=== PATIENT | female | born 1945 | race Caucasian/White ===

== ENCOUNTER 2016-11-13 19:47 | Emergency (ER) | payer MEDICARE, MEDICAID ==
[2016-11-13] MEDS ORDERED: Aspirin Low Dose CHEW TAB* 81 MG PO ONE (20:07)
[2016-11-13 20:51] LABS: Hematocrit 33 % (35-47); Mean Corpuscular HGB Conc 34 g/dl (31-36); Mean Corpuscular Hemoglobin 28 pg (27-31); Mean Corpuscular Volume 85 fL (80-97); Mean Platelet Volume 8 um3 (7.4-10.4); Red Blood Count 3.87 10^6/ul (4.0-5.4); Red Cell Distribution Width 14 % (10.5-15); White Blood Count 5.7 10^3/ul (3.5-10.8)
[2016-11-13 21:06] LABS: Albumin 4.1 g/dL (3.2-5.2); BUN/Creatinine Ratio 20.8 (8-20); Calcium 9.3 mg/dL (8.6-10.3); EGFR African American 73.3 (>60); Globulin 2.9 g/dL (2-4); Potassium 3.8 mmol/L (3.5-5.0); Total Bilirubin 0.4 mg/dL (0.2-1.0)
--- NOTE | 2016-11-13 21:08 | RAD ---
Indication: Chest pain. Single frontal view of the chest performed at 2025 hours was reviewed. Comparison is made with previous exam dated January 01, 2016. No mediastinal shift is noted. Heart is of normal size and configuration. Lung cruz appear clear. IMPRESSION: NO ACTIVE CARDIOPULMONARY DISEASE IS NOTED.
--- NOTE | 2016-11-14 01:35 | ED ---
Jensen Li Alok, scribed for Jennifer Rutledge MD on 11/13/16 at 2034 . HPI Chest Pain - HPI Summary HPI Summary: 71F presents to the ED BIBA with left sided chest discomfort accompanied by palpitations at 1800. Pt states her palpitations are still present. Pt took lorazepam prior to arrival. 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 Pt denies chest pressure Pt takes Celexa for depression. Pt is a former smoker 30 years ago. - History of Current Complaint Chief Complaint: EDChestPainROMI Time Seen by Provider: 11/13/16 19:55 Hx Obtained From: Patient Onset/Duration: Started Hours Ago, Atraumatic, Still Present Timing: Constant Initial Severity: Moderate Current Severity: Moderate Chest Pain Location: Left Anterior Character: Fluttering Aggravating Factor(s): Nothing Alleviating Factor(s): Nothing - Allergy/Home Medications Allergies/Adverse Reactions: Allergies Allergy/AdvReac Type Severity Reaction Status Date / Time Penicillins [PCN] Allergy Unknown Verified 12/21/12 12:12 Reaction Details PMH/Surg Hx/FS Hx/Imm Hx Cardiovascular History: Reports: Other Cardiovascular Problems/Disorders - Tachycardia Psychiatric History: Reports: Hx Anxiety, Hx Depression, Hx Panic Disorder, Hx Inpatient Treatment Denies: Hx Attention Deficit Hyperactivity Disorder, Hx Eating Disorder, Hx Community Mental Health Tx, Hx Bipolar Disorder, Hx of Violent Episodes Against Others - Immunization History Date of Tetanus Vaccine: unknown Infectious Disease History: Denies: Traveled Outside the [place] in Last 30 Days - Family History Known Family History: Negative: Cardiac Disease - Social History Lives: Alone Alcohol Use: None Hx Substance Use: No Substance Use Type: Reports: None Hx Tobacco Use: Yes Smoking Status (MU): Former Smoker Review of Systems Negative: Fever Positive: Chest Pain - discomfort, Other - palpitations All Other Systems Reviewed And Are Negative: Yes Physical Exam Triage Information Reviewed: Yes Vital Signs On Initial Exam: Initial Vital Signs Temp 98.3 F 11/13/16 21:30 Pulse 61 11/13/16 21:30 Resp 16 11/13/16 21:30 BP 118/68 11/13/16 21:30 Pulse Ox 97 11/13/16 21:30 Vital Signs Reviewed: Yes Appearance: Positive: Well-Appearing, No Pain Distress Skin: Positive: Warm, Skin Color Reflects Adequate Perfusion, Dry Eyes: Positive: EOMI, JULEE ENT: Positive: Pharynx normal, TMs normal Neck: Positive: Supple, Nontender Respiratory/Lung Sounds: Positive: Clear to Auscultation, Breath Sounds Present. Negative: Rales, Rhonchi, Wheezes Cardiovascular: Positive: RRR, Other - no gallop. Negative: Murmur, Rub Abdomen Description: Positive: Nontender, Soft, Other: - no rebound. Negative: Distended, Guarding Bowel Sounds: Positive: Present Musculoskeletal: Positive: Strength/ROM Intact. Negative: Edema Left, Edema Right Neurological: Positive: Sensory/Motor Intact, Alert, Oriented to Person Place, Time, CN Intact II-III Psychiatric: Positive: Affect/Mood Appropriate Diagnostics - Vital Signs Vital Signs Temp Pulse Resp BP Pulse Ox 11/13/16 23:30 60 13 134/86 95 11/13/16 23:18 57 14 96 11/13/16 22:30 62 15 127/63 94 11/13/16 22:00 63 16 114/80 95 11/13/16 21:30 98.3 F 63 10 118/68 95 11/13/16 21:00 62 13 111/73 94 11/13/16 20:30 66 15 102/79 95 11/13/16 20:00 70 17 137/80 96 - Laboratory Lab Results: Lab Results 11/13/16 11/13/16 11/13/16 Range/Units 20:40 20:40 20:40 WBC 5.7 (3.5-10.8) 10^3/ul RBC 3.87 L (4.0-5.4) 10^6/ul Hgb 11.0 L (12.0-16.0) g/dl Hct 33 L (35-47) % MCV 85 (80-97) fL MCH 28 (27-31) pg MCHC 34 (31-36) g/dl RDW 14 (10.5-15) % Plt Count 167 (150-450) 10^3/ul MPV 8 (7.4-10.4) um3 Neut % (Auto) 49.6 (38-83) % Lymph % (Auto) 39.1 (25-47) % [place] % (Auto) 8.6 (1-9) % Eos % (Auto) 2.1 (0-6) % Baso % (Auto) 0.6 (0-2) % Absolute Neuts (auto) 2.8 (1.5-7.7) 10^3/ul Absolute Lymphs (auto) 2.2 (1.0-4.8) 10^3/ul Absolute Monos (auto) 0.5 (0-0.8) 10^3/ul Absolute Eos (auto) 0.1 (0-0.6) 10^3/ul Absolute Basos (auto) 0 (0-0.2) 10^3/ul Absolute Nucleated RBC 0 10^3/ul Nucleated RBC % 0.1 Sodium 133 (133-145) mmol/L Potassium 3.8 (3.5-5.0) mmol/L Chloride 101 (101-111) mmol/L Carbon Dioxide 26 (22-32) mmol/L Anion Gap 6 (2-11) mmol/L BUN 20 (6-24) mg/dL Creatinine 0.96 H (0.51-0.95) mg/dL Est GFR ( Amer) 73.3 (>60) Est GFR (Non-Af Amer) 57.0 (>60) BUN/Creatinine Ratio 20.8 H (8-20) Glucose 112 H (70-100) mg/dL Lactic Acid 1.6 (0.5-2.0) mmol/L Calcium 9.3 (8.6-10.3) mg/dL Total Bilirubin 0.40 (0.2-1.0) mg/dL AST 16 (13-39) U/L ALT 16 (7-52) U/L Alkaline Phosphatase 55 (34-104) U/L Troponin I 0.00 (<0.04) ng/mL Total Protein 7.0 (6.4-8.9) g/dL Albumin 4.1 (3.2-5.2) g/dL Globulin 2.9 (2-4) g/dL Albumin/Globulin Ratio 1.4 (1-3) 11/14/16 Range/Units 01:04 WBC (3.5-10.8) 10^3/ul RBC (4.0-5.4) 10^6/ul Hgb (12.0-16.0) g/dl Hct (35-47) % MCV (80-97) fL MCH (27-31) pg MCHC (31-36) g/dl RDW (10.5-15) % Plt Count (150-450) 10^3/ul MPV (7.4-10.4) um3 Neut % (Auto) (38-83) % Lymph % (Auto) (25-47) % Glenn % (Auto) (1-9) % Eos % (Auto) (0-6) % Baso % (Auto) (0-2) % Absolute Neuts (auto) (1.5-7.7) 10^3/ul Absolute Lymphs (auto) (1.0-4.8) 10^3/ul Absolute Monos (auto) (0-0.8) 10^3/ul Absolute Eos (auto) (0-0.6) 10^3/ul Absolute Basos (auto) (0-0.2) 10^3/ul Absolute Nucleated RBC 10^3/ul Nucleated RBC % Sodium (133-145) mmol/L Potassium (3.5-5.0) mmol/L Chloride (101-111) mmol/L Carbon Dioxide (22-32) mmol/L Anion Gap (2-11) mmol/L BUN (6-24) mg/dL Creatinine (0.51-0.95) mg/dL Est GFR ( Amer) (>60) Est GFR (Non-Af Amer) (>60) BUN/Creatinine Ratio (8-20) Glucose (70-100) mg/dL Lactic Acid (0.5-2.0) mmol/L Calcium (8.6-10.3) mg/dL Total Bilirubin (0.2-1.0) mg/dL AST (13-39) U/L ALT (7-52) U/L Alkaline Phosphatase (34-104) U/L Troponin I 0.00 (<0.04) ng/mL Total Protein (6.4-8.9) g/dL Albumin (3.2-5.2) g/dL Globulin (2-4) g/dL Albumin/Globulin Ratio (1-3) Result Diagrams: 11/13/16 20:40 11/13/16 20:40 Lab Statement: Any lab studies that have been ordered have been reviewed, and results considered in the medical decision making process. - Radiology CXR Xray Interpretation: Positive (See Comments) - IMPRESSION: NO ACTIVE CARDIOPULMONARY DISEASE IS NOTED. Radiology Interpretation Completed By: Radiologist - EKG 1955 Cardiac Rate: NL - 66 bpm EKG Rhythm: Sinus Rhythm Chest Pain Course/Dx - Course Course Of Treatment: 71 yo female with palpitations kept for a 2nd trop which was neg essentially normal ekg ok to go home close f/u - Diagnoses Provider Diagnoses: Palpitations - Provider Notifications Discussed Care Of Patient With: Isidoro Yi - recommends 2nd trop Time Discussed With Above Provider: 20:15 Discharge - Discharge Plan Condition: Stable Disposition: HOME Referrals: Elena Garrido MD [Primary Care Provider] - The documentation as recorded by the Jensen vazquez Alok accurately reflects the service I personally performed and the decisions made by me, Jennifer Rutledge MD.
[2016-11-14 02:20] VITALS: BP 152/89
== END 2016-11-14 02:00 | disposition home or self-care (01) ==
LOC: ED 19:47
DX: R00.2 Palpitations (principal); F41.9 Anxiety disorder, unspecified; F32.9 Major depressive disorder, single episode, unspecified; Z88.0 Allergy status to penicillin; Z87.891 Personal history of nicotine dependence
CPT/HCPCS: 36415; 71010; 80053; 83605; 84484; 85025; 93005; 99283; A9270-GY

== ENCOUNTER → 2017-02-18 19:57 | Emergency (ER) | payer MEDICARE, MEDICAID ==
[~2017-02-18 19:57] MED LIST: NS 0.9% 1000 ML* 1,000 ML IV ONE
[2017-02-18 20:13] LABS: Hematocrit 34 % (35-47); Hemoglobin 11.4 g/dl (12.0-16.0); Mean Corpuscular HGB Conc 34 g/dl (31-36); Mean Corpuscular Hemoglobin 29 pg (27-31); Mean Corpuscular Volume 85 fL (80-97); Mean Platelet Volume 8 um3 (7.4-10.4); Red Blood Count 3.93 10^6/ul (4.0-5.4); Red Cell Distribution Width 14 % (10.5-15); White Blood Count 6.2 10^3/ul (3.5-10.8)
--- NOTE | 2017-02-18 20:17 | RAD ---
INDICATION: Neurologic change. COMPARISON: CT brain January 01, 2016 TECHNIQUE: Noncontrast axial source images were acquired from the skull base to the vertex. FINDINGS: Ventricles/sulci: The ventricles and cisterns are normal in size and configuration for age. Brain parenchyma: There is no focal parenchymal finding, evidence of intracranial mass, or intracranial mass effect. Intracranial hemorrhage:None. Extra-axial spaces: There are no abnormal extra axial fluid collections or evidence of extra-axial mass. Calvarium: There is no calvarial fracture or other calvarial abnormality. Scalp: There is no evidence of scalp or extracalvarial soft tissue abnormality. Paranasal sinuses/mastoid: The paranasal sinuses and mastoid air cells are clear. Other: None. IMPRESSION: No acute intracranial findings. Findings called to ED at 2012 hours
[2017-02-18 20:30] LABS: ALT 17 U/L (7-52); Alkaline Phosphatase 49 U/L (34-104); BUN/Creatinine Ratio 19.4 (8-20); Blood Urea Nitrogen 21 mg/dL (6-24); CO2 Carbon Dioxide 26 mmol/L (22-32); Calcium 9.3 mg/dL (8.6-10.3); Chloride 104 mmol/L (101-111); Cholesterol 204 mg/dL; EGFR Non-African American 49.7 (>60); Glucose 141 mg/dL (70-100); HDL Cholesterol 41.1 mg/dL; LDL Cholesterol 145 mg/dL; Sodium 135 mmol/L (133-145); Triglycerides 90 mg/dL
[2017-02-18 20:32] LABS: Anion Gap 5 mmol/L (2-11)
--- NOTE | 2017-02-18 20:39 | RAD ---
INDICATION: Neurologic change. Code keith. COMPARISON: November 13, 2016 TECHNIQUE: An AP portable view obtained at 2020 hours is submitted. FINDINGS: Bones/Soft Tissues: There are no acute bony findings. Cardiomediastinal: The cardiomediastinal silhouette is normal. Lungs: There may be a developing left basilar infiltrate. Suggest follow-up. Pleura: There are no pleural effusions. Other: None IMPRESSION: POSSIBLE LEFT BASILAR INFILTRATE. SUGGEST FOLLOW-UP.
--- NOTE | 2017-02-19 03:50 | ED ---
Dave Li Benjamin, scribed for Jennifer Rutledge MD on 02/18/17 at 2038 . Neurological HPI - HPI Summary HPI Summary: 71yo female BIBA for CVA like symptoms. Per EMS, pt called for severe STOVER. When EMS arrived, pt was unresponsive, but was responsive to sternal rub. Pt was unable to repeat words. Pt deied SOB or CP. Has hx of conversion disorder with expressive aphasia. LEVEL 5 CAVEAT - Aphasia. - History of Current Complaint Chief Complaint: EDNeurologicalDeficit Stated Complaint: HEADACHE, UNABLE TO SPEEK Time Seen by Provider: 02/18/17 20:01 Hx Obtained From: EMS Hx From Patient Unobtainable Due To: Altered Mental Status Pain Intensity: 0 - Allergy/Home Medications Allergies/Adverse Reactions: Allergies Allergy/AdvReac Type Severity Reaction Status Date / Time Penicillins [PCN] Allergy Unknown Verified 12/21/12 12:12 Reaction Details Home Medications: Home Medications Omeprazole CAP* [Prilosec CAP* 20 MG] 20 mg PO DAILY 02/19/17 [History Confirmed 02/19/17] PMH/Surg Hx/FS Hx/Imm Hx Cardiovascular History: Reports: Other Cardiovascular Problems/Disorders - Tachycardia Psychiatric History: Reports: Hx Anxiety, Hx Depression, Hx Panic Disorder, Hx Inpatient Treatment Denies: Hx Attention Deficit Hyperactivity Disorder, Hx Eating Disorder, Hx Community Mental Health Tx, Hx Bipolar Disorder, Hx of Violent Episodes Against Others - Immunization History Date of Tetanus Vaccine: unknown Infectious Disease History: Denies: Traveled Outside the [place] in Last 30 Days - Family History Known Family History: Negative: Cardiac Disease - Social History Occupation: Employed Part-time Lives: Alone Alcohol Use: None Hx Substance Use: No Substance Use Type: Reports: None Hx Tobacco Use: Yes Smoking Status (MU): Former Smoker Review of Systems - ROS Summary Review of Systems Summary: LEVEL 5 CAVEAT - NONVERBAL. All Other Systems Reviewed And Are Negative: No Physical Exam Triage Information Reviewed: Yes Vital Signs On Initial Exam: Initial Vitals Temp Pulse Resp BP Pulse Ox 99.3 F 83 18 153/86 97 02/18/17 20:14 02/18/17 20:14 02/18/17 20:14 02/18/17 20:14 02/18/17 20:14 Vital Signs Reviewed: Yes Completion Of Physical Exam Limited Due To: Dementia Skin: Positive: Warm, Skin Color Reflects Adequate Perfusion, Dry Eyes: Positive: EOMI, JULEE Neurological: Positive: Expressive Aphasia, Other - pt moves both hands. - Manuel Coma Scale Coma Scale Total: 11 Diagnostics - Vital Signs Vital Signs Temp Pulse Resp BP Pulse Ox 02/18/17 20:14 99.3 F 83 18 153/86 97 - Laboratory Lab Results: Lab Results 02/18/17 02/18/17 02/18/17 Range/Units 20:05 20:05 20:05 WBC 6.2 (3.5-10.8) 10^3/ul RBC 3.93 L (4.0-5.4) 10^6/ul Hgb 11.4 L (12.0-16.0) g/dl Hct 34 L (35-47) % MCV 85 (80-97) fL MCH 29 (27-31) pg MCHC 34 (31-36) g/dl RDW 14 (10.5-15) % Plt Count 176 (150-450) 10^3/ul MPV 8 (7.4-10.4) um3 Neut % (Auto) 48.3 (38-83) % Lymph % (Auto) 39.6 (25-47) % [place] % (Auto) 9.5 H (1-9) % Eos % (Auto) 1.5 (0-6) % Baso % (Auto) 1.1 (0-2) % Absolute Neuts (auto) 3.0 (1.5-7.7) 10^3/ul Absolute Lymphs (auto) 2.4 (1.0-4.8) 10^3/ul Absolute Monos (auto) 0.6 (0-0.8) 10^3/ul Absolute Eos (auto) 0.1 (0-0.6) 10^3/ul Absolute Basos (auto) 0.1 (0-0.2) 10^3/ul Absolute Nucleated RBC 0 10^3/ul Nucleated RBC % 0.1 INR (Anticoag Therapy) 0.90 (0.89-1.11) APTT 29.1 (26.0-36.3) seconds Lactic Acid 1.5 (0.5-2.0) mmol/L Blood Type Antibody Screen 02/18/17 Range/Units 20:05 WBC (3.5-10.8) 10^3/ul RBC (4.0-5.4) 10^6/ul Hgb (12.0-16.0) g/dl Hct (35-47) % MCV (80-97) fL MCH (27-31) pg MCHC (31-36) g/dl RDW (10.5-15) % Plt Count (150-450) 10^3/ul MPV (7.4-10.4) um3 Neut % (Auto) (38-83) % Lymph % (Auto) (25-47) % [place] % (Auto) (1-9) % Eos % (Auto) (0-6) % Baso % (Auto) (0-2) % Absolute Neuts (auto) (1.5-7.7) 10^3/ul Absolute Lymphs (auto) (1.0-4.8) 10^3/ul Absolute Monos (auto) (0-0.8) 10^3/ul Absolute Eos (auto) (0-0.6) 10^3/ul Absolute Basos (auto) (0-0.2) 10^3/ul Absolute Nucleated RBC 10^3/ul Nucleated RBC % INR (Anticoag Therapy) (0.89-1.11) APTT (26.0-36.3) seconds Lactic Acid (0.5-2.0) mmol/L Blood Type O Positive Antibody Screen Pending Result Diagrams: 02/18/17 20:05 02/18/17 20:05 Lab Statement: Any lab studies that have been ordered have been reviewed, and results considered in the medical decision making process. - Radiology CXR Xray Interpretation: Positive (See Comments) - IMPRESSION: POSSIBLE LEFT BASILAR INFILTRATE. SUGGEST FOLLOW-UP. Radiology Interpretation Completed By: Radiologist - ED physician has reviewed this radiology report and agrees. - CT Brain CT WO CT Interpretation: No Acute Changes CT Interpretation Completed By: Radiologist - ED physician has reviewed this radiology report and agrees. - EKG 2005. Cardiac Rate: NL - 72bpm EKG Rhythm: Sinus Rhythm Course/Dx - Course Course Of Treatment: Reviewed pts medication and allergy lists. Blood pressure noted. Jeff keith called at 2001 hours. Pt was verbal when ambulance arrived and then became non verbal and not moving any of her extremities. A code keith was ordered although her symptoms were not classic for stroke. AFter a quick review of her chart there is a hsitory of the same documented well by Dr. Lang in 2013. With a repeat evaluation pt without words but with nodding and gestures (now moving all of her extremities) admitted to depression and feeling more sad. She was medically cleared and has had her evaluation, she reports with writing to her clinical manager that this is typical of a panic attack for her but she denies suicidality at this time and the case has been discussed with Dr. Cano by the clinical manager and she will be going home this am - Diagnoses Provider Diagnoses: Conversion disorder Discharge - Discharge Plan Condition: Stable Disposition: HOME The documentation as recorded by the Dave vazquez Benjamin accurately reflects the service I personally performed and the decisions made by me, Jennifer Rutledge MD.
[2017-02-19 06:33] VITALS: BP 141/88
== END | disposition home or self-care (01) ==
LOC: ED 19:57
DX: F44.9 Dissociative and conversion disorder, unspecified (principal); R51 Headache; Z87.891 Personal history of nicotine dependence; Z82.49 Family history of ischemic heart disease and other diseases of the circulatory system
CPT/HCPCS: 36415; 70450; 71010; 80053; 80061; 83605; 84484; 85025; 85610; 85730; 86850; 86900; 86901; 93005; 99284

== ENCOUNTER 2018-07-06 09:28 | Emergency (ER) | payer MEDICAID, MEDICARE, OTHER ==
--- OUTSIDE RECORDS SUMMARY | 2018-07-06 10:04 | XMS REPORT | Continuity of Care Document ---
:1945 External Reference #:[id number] Author Name Karely Nolen Care Team Providers Name Role Phone Kortney Medina MD Care Team Information Supervising Nurse Unavailable Elena Garrido MD Primary Care Physician Unavailable Payers Type Date Identification Numbers Payment Provider Subscriber Policy Number: [id number] Medicare Dayan Wiseman PayID: [id number] [address] [place] [address] Policy Number: [id number] Medicaid Dayan Wiseman Group Name: 1 1 [address] PayID: [id number] [place] [address] Advance Directives Description No Information Available Problems Date Description Provider Status Onset: 06/10/2018 Current tear of medial cartilage Ahsan Ramirez MD Active AND/OR meniscus of knee Onset: 06/10/2018 Localized, primary osteoarthritis Ahsan Ramirez MD Active Family History Description No Information Available Social History Type Date Description Comments Sex Unknown Lives With Alone 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 Celexa /0 Active Tablets 40mg 1 by Unknown 000 mouth every day Lorazepam 0 Active Tablets 0.5mg prn Unknown 000 Propranolol HCL 0 Active Tablets 10mg 1 bid Unknown 000 Immunizations Description No Information Available Vital Signs Date Vital Result Comment 06/10/2018 11:17am Height 66 inches 5'6" Weight 176.00 lb Heart Rate 64 /min BP Systolic 110 mmHg BP Diastolic 68 mmHg Respiratory Rate 18 /min Pain Level 7 BMI (Body Mass Index) 28.4 kg/m2 09/02/2016 10:02am Height 66 inches 5'6" Weight 182.00 lb Heart Rate 56 /min BP Systolic Sitting 114 mmHg BP Diastolic Sitting 70 mmHg Respiratory Rate 14 /min BMI (Body Mass Index) 29.4 kg/m2 Results Description No Information Available Procedures Description No Information Available Encounters Type Date Location Provider Dx Diagnosis Office Visit 09/02/2016 [facility] Graciela Fisher M54.2 Cervicalgia 10:00a [facility]ias M.D. Office Visit 12/15/2008 [facility] Lennox William, 780.2 Syncope & Collapse 1:30a Asskaci ma D.O. Hospitalists Office Visit 12/14/2008 [facility] Darrel Hung 780.2 Syncope & Collapse 1:15a kaci Holley M.D. Hospitalists Office Visit 12/13/2008 [facility] Regla Araujo 780.2 Syncope & Collapse 12:30a kaci Holley M.D. Hospitalists Office Visit 2007 [facility] Sim Dyosn 346.90 Migraine Unspec 1:00p [facility] Haas M.D. W/O Intractable W/O Status Migrainosus Plan of Treatment Future Appointment(s):08/10/2018 10:45 am - Ahsan Ramirez MD at [facility].06/10/2018 - Ahsan Ramirez, MDM17.11 Unilateral primary osteoarthritis, right kneeNew Medication:Naproxen 250 mg - take 1 tab every 12 hours as needed for pain.New Therapy:Physical TherapyFollow up:Follow up: 2 pdmmtuH47.241A Other tear of medial meniscus, current injury, right knee, i
[2018-07-06] MEDS ORDERED: NS 0.9% 1000 ML** 1,000 ML IV ONE (10:17)
[2018-07-06] MEDS ORDERED: fentaNYL* 50 MCG/ML 2 ML VIAL (100 MCG VIAL) IV SLOW PU ONE (10:17)
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
[2018-07-06 10:35] LABS: ABS Basophils 0 10^3/ul (0-0.2); ABS Eosinophils 0 10^3/ul (0-0.6); ABS Lymphocytes 1.6 10^3/ul (1.0-4.8); ABS Monocytes 0.4 10^3/ul (0-0.8); ABS Neutrophils 3.1 10^3/ul (1.5-7.7); ABS Nucleated RBC 0 10^3/ul; Eosinophil % 0.7 %; Hematocrit 33 % (35-47); Lymphocyte % 30.5 %; Mean Corpuscular HGB Conc 34 g/dl (31-36); Mean Corpuscular Hemoglobin 29 pg (27-31); Mean Corpuscular Volume 85 fL (80-97); Mean Platelet Volume 8.9 fL (7.4-10.4); Nucleated Red Blood Cells % 0.1; Platelet Count 186 10^3/ul (150-450); Red Blood Count 3.82 10^6/ul (4.00-5.40); Red Cell Distribution Width 14 % (10.5-15); White Blood Count 5.2 10^3/ul (3.5-10.8)
[2018-07-06 10:47] LABS: INR 0.91 (0.77-1.02)
[2018-07-06 11:18] LABS: Albumin/Globulin Ratio 1.4 (1-3); BUN/Creatinine Ratio 26.4 (8-20); Calcium 9.3 mg/dL (8.6-10.3); EGFR African American 95.5 (>60); Globulin 2.8 g/dL (2-4); Total Bilirubin 0.4 mg/dL (0.2-1.0); Total Protein 6.8 g/dL (6.4-8.9)
[2018-07-06] MEDS ORDERED: Iohexol 300* (CONTRAST) 10 ML SDV IV ONE (11:37)
[2018-07-06 13:32] VITALS: BP 144/77
== END 2018-07-06 13:32 | disposition home or self-care (01) ==
LOC: ED 09:28
DX: R07.9 Chest pain, unspecified (principal); Z87.891 Personal history of nicotine dependence; M25.561 Pain in right knee
CPT/HCPCS: 36415; 71260; 74177; 80053; 83690; 84484; 85025; 85610; 85730; 93005; 96361; 96374; 99283; Q9967

== ENCOUNTER 2019-05-07 16:35 | Emergency (ER) | payer MEDICARE, MEDICAID ==
--- NOTE | 2019-05-07 17:35 | ED ---
GI/ HPI - HPI Summary HPI Summary: This patient is a 74 year old F presenting to ED with a chief complaint of dysuria since three days ago. Patient reports urinary frequency, burning, and urgency. Patient believes she has a UTI as this has occurred before. The patient rates the pain 8/10 in severity. Symptoms aggravated by nothing. Symptoms alleviated by nothing. Patient denies fever. - History of Current Complaint Chief Complaint: EDUrogenitalProblems Time Seen by Provider: 05/07/19 17:28 Stated Complaint: URINE INFECTION PER PT Hx Obtained From: Patient Onset/Duration: Started Days Ago - 3 days, Still Present Timing: Constant, Lasting Days - 3 days Severity: Severe Current Severity: Severe Pain Intensity: 8 Associated Signs and Symptoms: Positive: Dysuria, Other: - Urinary frequency, urgency, and burning. Negative: Fever Aggravating Factor(s): Nothing Alleviating Factor(s): Nothing - Allergy/Home Medications Allergies/Adverse Reactions: Allergies Allergy/AdvReac Type Severity Reaction Status Date / Time Penicillins Allergy Unknown Verified 05/07/19 16:49 Reaction Details PMH/Surg Hx/FS Hx/Imm Hx Endocrine/Hematology History: Denies: Hx Diabetes, Hx Sickle Cell Disease Cardiovascular History: Reports: Other Cardiovascular Problems/Disorders - Tachycardia Denies: Hx Hypertension Respiratory History: Denies: Hx Chronic Bronchitis, Hx Chronic Obstructive Pulmonary Disease (COPD ) History: Denies: Hx Renal Disease Neurological History: Denies: Hx Transient Ischemic Attacks (TIA) Psychiatric History: Reports: Hx Anxiety, Hx Depression, Hx Panic Disorder, Hx Inpatient Treatment Denies: Hx Attention Deficit Hyperactivity Disorder, Hx Eating Disorder, Hx Community Mental Health Tx, Hx Bipolar Disorder, Hx of Violent Episodes Against Others - Surgical History Surgery Procedure, Year, and Place: - Immunization History Date of Tetanus Vaccine: unknown Infectious Disease History: No Infectious Disease History: Denies: Traveled Outside the [place] in Last 30 Days - Family History Known Family History: Negative: Cardiac Disease, Seizure Disorder - Social History Alcohol Use: None Hx Substance Use: No Substance Use Type: Reports: None Hx Tobacco Use: Yes Smoking Status (MU): Former Smoker Review of Systems Negative: Fever Positive: burning, dysuria, frequency, urgency All Other Systems Reviewed And Are Negative: Yes Physical Exam - Summary Physical Exam Summary: Appearance: The patient is well-nourished in no acute distress and in no acute pain. Skin: The skin is warm and dry, and skin color reflects adequate perfusion. HEENT: The head is normocephalic and atraumatic. The pupils are equal and reactive. The conjunctivae are clear and without drainage. Nares are patent and without drainage. Mouth reveals moist mucous membranes, and the throat is without erythema and exudate. The external ears are intact. The ear canals are patent and without drainage. The tympanic membranes are intact. Neck: The neck is supple with full range of motion and non-tender. There are no carotid bruits. There is no neck vein distension. Respiratory: Chest is non-tender. Lungs are clear to auscultation and breath sounds are symmetrical and equal. Cardiovascular: Heart is regular rate and rhythm. There is no murmur or rub auscultated. There is no peripheral edema and pulses are symmetrical and equal. Abdomen: The abdomen is soft and non-tender. There are normal bowel sounds heard in all four quadrants and there is no organomegaly palpated. Musculoskeletal: There is no back tenderness noted. Extremities are non-tender with full range of motion. There is good capillary refill. There is no peripheral edema or calf tenderness elicited. Neurological: Patient is alert and oriented to person, place and time. The patient has symmetrical motor strength in all four extremities. Cranial nerves are grossly intact. Deep tendon reflexes are symmetrical and equal in all four extremities. Psychiatric: The patient has an appropriate affect and does not exhibit any anxiety or depression. Triage Information Reviewed: Yes Vital Signs On Initial Exam: Initial Vitals Temp Pulse Resp BP Pulse Ox 96.0 F 81 18 149/83 96 05/07/19 16:47 05/07/19 16:47 05/07/19 16:47 05/07/19 16:47 05/07/19 16:47 Vital Signs Reviewed: Yes Procedures - Sedation Patient Received Moderate/Deep Sedation with Procedure: No Diagnostics - Vital Signs Vital Signs Temp Pulse Resp BP Pulse Ox 05/07/19 16:47 96.0 F 81 18 149/83 96 - Laboratory Lab Statement: Any lab studies that have been ordered have been reviewed, and results considered in the medical decision making process. Re-Evaluation - Re-Evaluation First Eval Re-Evaluation Time: 18:48 Comment: Discussed results with patient. Patient will be admitted to [facility] with dx of UTI. Patient understands and agrees with this plan. GIGU Course/Dx - Course Course Of Treatment: Ms. Wiseman presented stating that she had symptoms of a urinary tract infection. She complained of urgency, frequency and dysuria. She was nontoxic in appearance with stable vitals. Her urinalysis was positive and I will treat her with Cipro and Pyridium - Diagnoses Provider Diagnoses: UTI (urinary tract infection) Discharge ED - Sign-Out/Discharge Documenting (check all that apply): Patient Departure - Discharge - Discharge Plan Condition: Stable Disposition: HOME Prescriptions: Ciprofloxacin TAB* [Cipro Tab*] 500 mg PO BID #20 tab Phenazopyridine 200 mg (NF) [Pyridium 200 MG tab *] 200 mg PO TID #9 tab Patient Education Materials: Urinary Tract Infection in Women (ED) Referrals: Elena Garrido MD [Primary Care Provider] - 3 Days Additional Instructions: Please follow up with your primary care physician in 2-3 days. PLEASE RETURN TO THE ER FOR WORSENING OR CHANGING SYMPTOMS. It was a pleasure taking care of you today. - Billing Disposition and Condition Condition: STABLE Disposition: Home - Attestation Statements Document Initiated by Prakash: Yes Documenting Scribe: Jc Allan Provider For Whom Prakash is Documenting (Include Credential): Cleveland Herrera MD Scribe Attestation: I, Jc Allan, scribed for Cleveland Herrera MD on 05/07/19 at 2038. Scribe Documentation Reviewed: Yes Provider Attestation: The documentation as recorded by the Jc vazquez accurately reflects the service I personally performed and the decisions made by me, Cleveland Herrera MD Status of Scribe Document: Viewed
[2019-05-07 18:18] LABS: Urine Appearance Clear; Urine Bilirubin Negative (Negative); Urine Blood 2+ (Negative); Urine Color Amber; Urine Glucose Negative (Negative); Urine Ketones Negative (Negative); Urine Nitrite Positive (Negative); Urine Protein Negative (Negative); Urine Specific Gravity 1.004 (1.010-1.030); Urine Urobilinogen Positive (Negative)
[2019-05-07 18:20] LABS: Urine Bacteria 1+ (Absent); Urine Red Blood Cell 2+(6-10/hpf) (Absent); Urine Squamous Epithelial Cell Present (Absent); Urine White Blood Cell 3+(>20/hpf) (Absent)
[2019-05-07] MEDS ORDERED: Phenazopyridine TAB* 100 MG PO ONE (18:46)
[2019-05-07] MEDS ORDERED: Ciprofloxacin TAB* 500 MG PO ONE (18:46)
[2019-05-07 18:55] VITALS: BP 123/73
--- OUTSIDE RECORDS SUMMARY | 2019-05-10 15:44 | XMS REPORT | Continuity of Care Document ---
:1945 External Reference #:[id number] Author Name Lennox Zendejas M.D. Address [address] [place] [address] Care Team Providers Name Role Phone Elena Garrido MD Care Team Information Photo Printer [phone] Problems Description No Information Available Social History Type Date Description Comments Sex Unknown ETOH Use Never used alcohol Tobacco Use Start: Unknown Patient has never smoked Smoking Status Reviewed: 04/14/19 Patient has never smoked Allergies, Adverse Reactions, Alerts Description No Known Drug Allergies Medications Active Medications SIG Qnty Indications Ordering Provider Date Celexa 40mg Unknown Tablets Lorazepam 0.5mg Unknown Tablets Immunizations Description No Information Available Vital Signs Date Vital Result Comment 04/14/2019 10:50am Intraocular Pressure Right Eye 14 mmHg Intraocular Pressure Left Eye 16 mmHg 10/12/2017 10:02am Intraocular Pressure Right Eye 18 mmHg Intraocular Pressure Left Eye 18 mmHg Results Description No Information Available Procedures Date Code Description Status 04/14/2019 68458 Ophthalmoscopy Subsequent Completed 04/14/2019 38792 Eye Exam Est Comprehensive Completed Medical Devices Description No Information Available Encounters Description No Information Available Assessments Date Code Description Provider 04/14/2019 H25.813 Combined forms of age-related cataract, Lennox Zendejas M.D. bilateral 04/14/2019 H43.811 Vitreous degeneration, right eye Lennox Zendejas M.D. Plan of Treatment 04/14/2019 - Lennox Zendejas M.D.H25.813 Combined forms of age-related cataract , bilateralFollow up:mónica cross wksH43.811 Vitreous degeneration, right eye Functional Status Description No Information Available Mental Status Description No Information Available Referrals Description No Information Available
--- NOTE | 2019-05-11 07:36 | ED ---
Imaging and Labs Follow Up Follow Up Type: Labs/Cultures Labs/Culture Result: Urine culture final grew Proteus Mirabilis Patient Communication/Plan: Patient was placed on ciprofloxacin prior to discharge Patient Communication/Plan: This is sensitive to organism and nothing further required Provider Diagnoses: UTI (urinary tract infection)
== END 2019-05-07 18:50 | disposition home or self-care (01) ==
LOC: ED 16:35
DX: N39.0 Urinary tract infection, site not specified (principal); Z88.0 Allergy status to penicillin; Z87.891 Personal history of nicotine dependence
CPT/HCPCS: 81003; 81015; 87077; 87086; 87186; 99282; A9270-GY

== ENCOUNTER 2019-09-03 04:00 | Emergency (ER) | payer MEDICARE, MEDICAID ==
[2019-09-03] MEDS ORDERED: Pantoprazole IV* 40 MG IV ONE (04:06)
[2019-09-03] MEDS ORDERED: Ondansetron INJ* 2 MG/ML VIAL IV ONE (04:06)
[2019-09-03] MEDS ORDERED: NS 0.9% 1000 ML** 1,000 ML IV ONE (04:06)
--- NOTE | 2019-09-03 04:20 | ED ---
Abdominal Pain/Female - HPI Summary HPI Summary: Patient is a 74 year-old female arriving via ambulance to [facility] with a chief complaint of diffuse abdominal pain accompanied by nausea/vomiting/diarrhea since 1900 last night. She reports her symptoms began last night and have persisted all throughout the night. The abdominal pain is sharp rated 9/10 in severity. She denies fevers. She has not taken any medications for treatment. Past medical history includes tachycardia, anxiety, depression, thyroidectomy, appendectomy, . Former smoker, no EtOH, no substance use. Medications reviewed. Allergies noted. - History of Current Complaint Chief Complaint: EDAbdPain Stated Complaint: NAUSEA/VOMITING PER EMS Time Seen by Provider: 09/03/19 04:05 Hx Obtained From: Patient Onset/Duration: Gradual Onset, Lasting Hours, Still Present Timing: Constant Severity Initially: Moderate Severity Currently: Severe Pain Intensity: 9 Pain Scale Used: 0-10 Numeric Location: Diffuse Aggravating Factor(s): Nothing Alleviating Factor(s): Nothing Associated Signs and Symptoms: Positive: Nausea, Vomiting, Diarrhea. Negative: Fever Allergies/Adverse Reactions: Allergies Allergy/AdvReac Type Severity Reaction Status Date / Time Penicillins Allergy Unknown Verified 09/03/19 04:03 Reaction Details Home Medications: Home Medications LORazepam TAB(*) [Ativan TAB(*)] 0.5 mg PO BID PRN 07/11/12 [History Confirmed 09/03/19] Citalopram TAB* [CeleXA TAB*] 40 mg PO DAILY 01/01/16 [History Confirmed ] Propranolol 10 mg TAB [Inderal TAB*] 10 mg PO TID 01/01/16 [History Confirmed ] Diclofenac Sodium [Voltaren] 2 gm TOPICAL BID 07/06/18 [History Confirmed ] Naproxen TAB* [Naprosyn 250 mg TAB*] 250 mg PO BID PRN 07/06/18 [History Confirmed 09/03/19] Ondansetron ODT TAB* [Zofran 4 MG Odt TAB*] 4 mg PO Q8H PRN 4 Days #12 tab.odt 09/03/19 [Rx] PMH/Surg Hx/FS Hx/Imm Hx Endocrine/Hematology History: Reports: Hx Thyroid Disease Denies: Hx Diabetes, Hx Sickle Cell Disease Cardiovascular History: Reports: Other Cardiovascular Problems/Disorders - Tachycardia Denies: Hx Hypertension Respiratory History: Denies: Hx Chronic Bronchitis, Hx Chronic Obstructive Pulmonary Disease (COPD ) History: Denies: Hx Renal Disease Neurological History: Denies: Hx Transient Ischemic Attacks (TIA) Psychiatric History: Reports: Hx Anxiety, Hx Depression, Hx Panic Disorder, Hx Inpatient Treatment Denies: Hx Attention Deficit Hyperactivity Disorder, Hx Eating Disorder, Hx Community Mental Health Tx, Hx Bipolar Disorder, Hx of Violent Episodes Against Others - Surgical History Surgical History: Yes Surgery Procedure, Year, and Place: , appendectomy, thyroidectomy - Immunization History Date of Tetanus Vaccine: unknown Infectious Disease History: No Infectious Disease History: Denies: Traveled Outside the [place] in Last 30 Days - Family History Known Family History: Negative: Cardiac Disease, Seizure Disorder - Social History Alcohol Use: None Hx Substance Use: No Substance Use Type: Reports: None Hx Tobacco Use: Yes Smoking Status (MU): Former Smoker - Additional Comments History Additional Comments: tachycardia, anxiety, depression, thyroidectomy, appendectomy, Review of Systems - ROS Summary Review of Systems Summary: Home Medications Medication Instructions Recorded Confirmed Type LORazepam TAB(*) [Ativan TAB(*)] 0.5 mg PO BID PRN 07/11/12 09/03/19 History Citalopram TAB* [CeleXA TAB*] 40 mg PO DAILY 01/01/16 09/03/19 History Propranolol 10 mg TAB [Inderal 10 mg PO TID 01/01/16 09/03/19 History TAB*] Diclofenac Sodium [Voltaren] 2 gm TOPICAL BID 07/06/18 09/03/19 History Naproxen TAB* [Naprosyn 250 mg 250 mg PO BID PRN 07/06/18 09/03/19 History TAB*] Negative: Fever Positive: Abdominal Pain - diffuse, Vomiting, Diarrhea, Nausea All Other Systems Reviewed And Are Negative: Yes Physical Exam - Summary Physical Exam Summary: General: Well-developed, Well-nourished elderly female. Pale-appearing. No acute distress. HEENT: Normocephalic, Atraumatic. Eyes: Conjuctiva normal, PERRL. Oropharynx: Clear, dry mucous membranes, (-) exudates. Neck: Soft, FROM, (-) lymphadenopathy, (-) thyromegaly, (-) JVD. Cardiovascular: Normal sinus rhythm, (-) murmur. Lungs: Clear to auscultation bilaterally (-) wheezes, (-) rales, (-) rhonchi. Abdomen: Soft, mild diffuse tenderness, non-distended, (-) organomegaly, normal bowel sounds. Back: (-) CVA tenderness Extremities: No edema. Skin: Warm, dry, (-) rash. Neuro: Alert and oriented x3, moves all extremities equally. No ataxia. No gait disturbance. No sensory deficit. Normal strength, normal sensation. Psychiatric: Mood normal, affect normal. Triage Information Reviewed: Yes Vital Signs On Initial Exam: Initial Vitals Temp Pulse Resp BP Pulse Ox 98.3 F 84 18 155/101 97 09/03/19 04:01 09/03/19 04:01 09/03/19 04:01 09/03/19 04:01 09/03/19 04:01 Vital Signs Reviewed: Yes Procedures - Sedation Patient Received Moderate/Deep Sedation with Procedure: No Diagnostics - Vital Signs Vital Signs Temp Pulse Resp BP Pulse Ox 09/03/19 04:01 98.3 F 84 18 155/101 97 - Laboratory Result Diagrams: 09/03/19 04:35 09/03/19 04:35 Lab Statement: Any lab studies that have been ordered have been reviewed, and results considered in the medical decision making process. Re-Evaluation - Re-Evaluation First Eval Re-Evaluation Time: 06:30 Comment: Patient indicating RUQ pain worst, still present, plan for CT Second Eval Re-Evaluation Time: 08:40 Change: Improved - tolerating PO, CT scan w/o abnormality. Given zofran PRN. EKG w normal qTC Abdominal Pain Fem Course/Dx - Course Course Of Treatment: 74-year-old female presents from home by ambulance with vomiting and diarrhea. Abdominal pain. No cough, chest pain, shortness of breath. She states the pain is all over. Patient initially given IV fluids and Zofran and Protonix. Diffuse tenderness on exam. Afebrile. Laboratories demonstrated a normal white count. No UTI. Patient given Reglan. Awaiting CT abdomen and pelvis. Signed out at change of shift. Patient received IV fluids , Zofran, and Protonix in the ED. Patient also given Reglan and Fentanyl. - Diagnoses Provider Diagnoses: Abdominal pain, Nausea, vomiting, and diarrhea Discharge ED - Sign-Out/Discharge Documenting (check all that apply): Sign-Out Patient Signing out patient TO: Rosalinda Alvarenga - Patient is a sign-out to Dr. Rosalinda Alvarenga MD, at change of shift at 0700 on 09/03/19, pending Abd/Pel CT and disposition. - Discharge Plan Condition: Stable Disposition: HOME Prescriptions: Ondansetron ODT TAB* [Zofran 4 MG Odt TAB*] 4 mg PO Q8H PRN 4 Days #12 tab.odt PRN Reason: Nausea/Vomiting Patient Education Materials: Acute Nausea and Vomiting (ED) Referrals: Elena Garrido MD [Primary Care Provider] - Additional Instructions: You were seen in emergency department for nausea vomiting and diarrhea. Please drink lots of fluids including water or Gatorade. Please return to emergency department if you have worsening pain, continued vomiting and diarrhea and unable to drink fluids, continued fevers or if you're concerned. Please take Zofran as needed every 8 hours or vomiting. If any lab studies are completed at time of discharge, you'll be called with the relevant results. Please follow up with her primary care doctor in next 1-2 days. It was a pleasure taking care of you today! - Billing Disposition and Condition Condition: STABLE Disposition: Home - Attestation Statements Document Initiated by Prakash: Yes Documenting Scribe: Atiya Bloom Provider For Whom Prakash is Documenting (Include Credential): Kayla Cleveland MD Scribe Attestation: IAtiya, scribed for Kayla Cleveland MD on 09/03/19 at 1918. Scribe Documentation Reviewed: Yes Provider Attestation: The documentation as recorded by the Atiya vazquez accurately reflects the service I personally performed and the decisions made by me, Kayla Cleveland MD Status of Scribe Document: Viewed
[2019-09-03 04:40] LABS: ABS Lymphocytes 1.4 10^3/ul (1.0-4.8); ABS Monocytes 0.2 10^3/ul (0-0.8); ABS Neutrophils 6.3 10^3/ul (1.5-7.7); Eosinophil % 0.2 %; Hematocrit 30 % (35-47); Hemoglobin 10.3 g/dL (12.0-16.0); Lymphocyte % 17.9 %; Mean Corpuscular HGB Conc 34 g/dL (31-36); Mean Corpuscular Hemoglobin 29 pg (27-31); Mean Corpuscular Volume 86 fL (80-97); Mean Platelet Volume 9.1 fL (7.4-10.4); Platelet Count 157 10^3/uL (150-450); Red Blood Count 3.54 10^6 /uL (3.70-4.87); Red Cell Distribution Width 14 % (10-15)
[2019-09-03 04:47] LABS: INR 0.98 (0.82-1.09)
[2019-09-03 04:58] LABS: Albumin 3.8 g/dL (3.2-5.2); Albumin/Globulin Ratio 1.4 (1-3); BUN/Creatinine Ratio 23.5 (8-20); C Reactive Protein 1.62 mg/L (<8.01); Calcium 8.5 mg/dL (8.6-10.3); EGFR African American 83.2 (>60); EGFR Non-African American 68.7 (>60); Globulin 2.8 g/dL (2-4); Potassium 3.7 mmol/L (3.5-5.0); Total Bilirubin 0.5 mg/dL (0.2-1.0); Total Protein 6.6 g/dL (6.4-8.9)
[2019-09-03 05:47] LABS: Urine Appearance Clear; Urine Bilirubin Negative (Negative); Urine Blood 2+ (Negative); Urine Color Colorless; Urine Glucose Negative (Negative); Urine Ketones Negative (Negative); Urine Nitrite Negative (Negative); Urine Protein Negative (Negative); Urine Specific Gravity 1.006 (1.010-1.030); Urine Urobilinogen Negative (Negative)
[2019-09-03 05:48] LABS: Urine Bacteria Absent (Absent); Urine Red Blood Cell 3+(>10/hpf) (Absent); Urine White Blood Cell Absent (Absent)
[2019-09-03] MEDS ORDERED: Metoclopramide IV* 5 MG/ML 2 ML VIAL IV ONE (06:02)
[2019-09-03] MEDS ORDERED: fentaNYL* 50 MCG/ML 2 ML VIAL (100 MCG VIAL) IV SLOW PU ONE (06:35)
[2019-09-03] MEDS ORDERED: Iohexol 300* (CONTRAST) 10 ML SDV IV ONE (07:07)
--- NOTE | 2019-09-03 07:34 | ED ---
Progress - Progress Note Progress Note: Patient signed out by Dr. Cleveland at 07:00 on 09/03/2019 pending abdomen/pelvis CT and disposition. Abdomen/Pelvis CT Impression: No evidence of bowel obstruction is noted. No evidence of distended stomach is noted. No evidence of biliary duct dilatation is noted. ED physician has reviewed this report. EKG Interpretation: An EKG at 08:15 reveals normal sinus rhythm rate of 77, QTC of 468. ED physician has reviewed and interpreted this EKG. - EKG/XRAY/CT EKG: NSR - 77 BPM Comments: QTC of 468. ED physician has reviewed and interpreted this EKG. Re-Evaluation - Re-Evaluation First Eval Re-Evaluation Time: 06:30 Comment: Patient indicating RUQ pain worst, still present, plan for CT Second Eval Re-Evaluation Time: 08:40 Change: Improved - tolerating PO, CT scan w/o abnormality. Given zofran PRN. EKG w normal qTC Course/Dx - Course Course Of Treatment: Patient received IV fluids, Zofran, and Protonix in the ED. Patient also given Reglan and Fentanyl. - Diagnoses Provider Diagnoses: Abdominal pain, Nausea, vomiting, and diarrhea Discharge ED - Sign-Out/Discharge Documenting (check all that apply): Patient Departure, Receiving Sign-Out Receiving patient FROM: Kayla Cleveland - Pending abdomen/pelvis CT and disposition. - Discharge Plan Condition: Stable Disposition: HOME Prescriptions: Ondansetron ODT TAB* [Zofran 4 MG Odt TAB*] 4 mg PO Q8H PRN 4 Days #12 tab.odt PRN Reason: Nausea/Vomiting Patient Education Materials: Acute Nausea and Vomiting (ED) Referrals: Elena Garrido MD [Primary Care Provider] - Additional Instructions: You were seen in emergency department for nausea vomiting and diarrhea. Please drink lots of fluids including water or Gatorade. Please return to emergency department if you have worsening pain, continued vomiting and diarrhea and unable to drink fluids, continued fevers or if you're concerned. Please take Zofran as needed every 8 hours or vomiting. If any lab studies are completed at time of discharge, you'll be called with the relevant results. Please follow up with her primary care doctor in next 1-2 days. It was a pleasure taking care of you today! - Billing Disposition and Condition Condition: STABLE Disposition: Home - Attestation Statements Document Initiated by Brendaibe: Yes Documenting Scribe: Nataly Roland Provider For Whom Prakash is Documenting (Include Credential): Rosalinda Alvarenga MD Scribe Attestation: Nataly Li, scribed for Rosalinda Alvarenga MD on 09/03/19 at 0848. Scribe Documentation Reviewed: Yes Provider Attestation: The documentation as recorded by the Nataly vazquez accurately reflects the service I personally performed and the decisions made by , Rosalinda Alvarenga MD Status of Scribe Document: Viewed
[2019-09-03 08:53] VITALS: BP 135/71
== END 2019-09-03 08:51 | disposition home or self-care (01) ==
LOC: ED 04:00
DX: R10.9 Unspecified abdominal pain (principal); E03.9 Hypothyroidism, unspecified; R11.2 Nausea with vomiting, unspecified; R19.7 Diarrhea, unspecified; Z88.0 Allergy status to penicillin; Z86.79 Personal history of other diseases of the circulatory system; Z87.891 Personal history of nicotine dependence
CPT/HCPCS: 36415; 74177; 80053; 81003; 81015; 82150; 83605; 83690; 85025; 85610; 86140; 93005; 96374; 96375; 99284; J2405; J2765; J3010; Q9967

== ENCOUNTER 2020-07-29 20:13 | Observation (INO) ==
[2020-07-29 21:11] LABS: ABS Lymphocytes 1.3 10^3/ul (1.0-4.8); ABS Monocytes 0.5 10^3/ul (0-0.8); ABS Neutrophils 3.5 10^3/ul (1.5-7.7); Eosinophil % 0.5 %; Hematocrit 31 % (35-47); Hemoglobin 10.7 g/dL (12.0-16.0); Mean Corpuscular HGB Conc 34 g/dL (31-36); Mean Corpuscular Hemoglobin 29 pg (27-31); Mean Corpuscular Volume 85 fL (80-97); Mean Platelet Volume 8.6 fL (7.4-10.4); Platelet Count 200 10^3/uL (150-450); Red Blood Count 3.68 10^6 /uL (3.70-4.87); Red Cell Distribution Width 14 % (10-15); White Blood Count 5.3 10^3/uL (3.5-10.8)
[2020-07-29 21:25] LABS: ALT 11 U/L (7-52); AST 14 U/L (13-39); Albumin 4.2 g/dL (3.2-5.2); Albumin/Globulin Ratio 1.6 (1-3); Alkaline Phosphatase 60 U/L (34-104); Anion Gap 8 mmol/L (2-11); BUN/Creatinine Ratio 18.8 (8-20); Blood Urea Nitrogen 16 mg/dL (6-24); CO2 Carbon Dioxide 22 mmol/L (22-32); Calcium 9.3 mg/dL (8.6-10.3); Chloride 100 mmol/L (101-111); EGFR African American 78.5 (>60); EGFR Non-African American 64.9 (>60); Globulin 2.6 g/dL (2-4); Glucose 133 mg/dL (70-100); Potassium 3.5 mmol/L (3.5-5.0); Sodium 130 mmol/L (135-145); Total Protein 6.8 g/dL (6.4-8.9)
[2020-07-29 21:26] LABS: Acetaminophen < 15 mcg/mL; Alcohol, S < 10 mg/dL (<10); Salicylate < 2.50 mg/dL (<30)
[2020-07-29 21:40] LABS: TSH Ultra Thyroid Stim Horm 0.68 mcIU/mL (0.34-5.60)
[2020-07-29 22:17] LABS: Urine Appearance Clear; Urine Bilirubin Negative (Negative); Urine Blood 2+ (Negative); Urine Color Straw; Urine Glucose Negative (Negative); Urine Ketones Negative (Negative); Urine Nitrite Negative (Negative); Urine Protein Negative (Negative); Urine Specific Gravity 1.003 (1.010-1.030); Urine Urobilinogen Negative (Negative)
[2020-07-29 22:26] LABS: Urine Bacteria Absent (Absent); Urine Red Blood Cell 1+(3-5/hpf) (Absent); Urine White Blood Cell Absent (Absent)
[2020-07-29 22:44] LABS: Urine Benzodiazepine Screen None Detected (None Detect); Urine Cannabinoids Screen None Detected (None Detect); Urine Opiates Screen None Detected (None Detect)
[2020-07-30] MEDS ORDERED: Ondansetron 4 mg VIAL 2 MG/ML 2 ml VIAL IV PRN (13:37)
[2020-07-30] MEDS ORDERED: Ondansetron ODT 4 mg TAB 4 MG TAB PO PRN (13:43)
[2020-07-30 15:00] LABS: C Reactive Protein 1.11 mg/L (<8.01); Creatine Kinase 67 U/L (10-223)
[2020-07-30] MEDS: Enoxaparin 40 MG/0.4 ML SYR SUBCUT SCH (20:41)
[2020-07-30] MEDS: CITALOPRAM 40 MG PO SCH (21:10)
[2020-07-31 05:58] LABS: ABS Eosinophils 0.1 10^3/ul (0-0.6); ABS Lymphocytes 1.5 10^3/ul (1.0-4.8); ABS Monocytes 0.4 10^3/ul (0-0.8); Eosinophil % 1.4 %; Hematocrit 33 % (35-47); Hemoglobin 11.3 g/dL (12.0-16.0); Lymphocyte % 37.4 %; Mean Corpuscular HGB Conc 34 g/dL (31-36); Mean Corpuscular Hemoglobin 29 pg (27-31); Mean Corpuscular Volume 86 fL (80-97); Mean Platelet Volume 8.5 fL (7.4-10.4); Platelet Count 185 10^3/uL (150-450); Red Blood Count 3.85 10^6 /uL (3.70-4.87); Red Cell Distribution Width 14 % (10-15)
[2020-07-31 06:23] LABS: Anion Gap 6 mmol/L (2-11); BUN/Creatinine Ratio 12.8 (8-20); Blood Urea Nitrogen 10 mg/dL (6-24); CO2 Carbon Dioxide 27 mmol/L (22-32); Calcium 9.5 mg/dL (8.6-10.3); Chloride 101 mmol/L (101-111); EGFR African American 86.7 (>60); EGFR Non-African American 71.6 (>60); Glucose 92 mg/dL (70-100); Potassium 3.5 mmol/L (3.5-5.0); Sodium 134 mmol/L (135-145)
[2020-07-31 06:25] LABS: % Iron Saturation 27 % (15-55); Iron 87 ug/dL (50-212); Total Iron Binding Capacity 318 mcg/dL (250-450); Transferrin 227 mg/dL (203-362); Unsaturated Iron Binding < 303 ug/dL
[2020-07-31 06:46] LABS: Ferritin 94.8 ng/mL (11-307)
[2020-07-31 06:49] LABS: Folate 13.77 ng/mL (>3.99)
[2020-07-31 06:50] LABS: Vitamin B12 327 pg/mL (180-914)
[2020-07-31] MEDS: Enoxaparin 40 MG/0.4 ML SYR SUBCUT SCH (21:16)
[2020-07-31] MEDS: CITALOPRAM 40 MG PO SCH (22:01)
[2020-08-01] MEDS: Enoxaparin 40 MG/0.4 ML SYR SUBCUT SCH (21:59)
[2020-08-02 07:53] VITALS: BP 123/75
== END 2020-08-02 11:25 | disposition home or self-care (01) ==
LOC: ED 20:13 → MEDTELE 20:13
PROVIDERS: ADMIT Internal Medicine; ATTEND Pediatrics

== ENCOUNTER 2020-08-06 15:23 | Inpatient (IN) ==
[2020-08-06] MEDS ORDERED: NS 0.9% 1000 ml BAG 1,000 ML IV ONE (15:24)
[2020-08-06 16:31] LABS: Activated Partial Thrombo Time 26.3 seconds (26.0-38.0); INR 1.03 (0.82-1.09)
[2020-08-06 16:41] LABS: ABS Eosinophils 0.1 10^3/ul (0-0.6); ABS Lymphocytes 1.6 10^3/ul (1.0-4.8); ABS Monocytes 0.5 10^3/ul (0-0.8); ABS Neutrophils 3.2 10^3/ul (1.5-7.7); Eosinophil % 1.1 %; Hematocrit 31 % (35-47); Lymphocyte % 29.9 %; Mean Corpuscular HGB Conc 35 g/dL (31-36); Mean Corpuscular Hemoglobin 30 pg (27-31); Mean Corpuscular Volume 85 fL (80-97); Mean Platelet Volume 8.9 fL (7.4-10.4); Nucleated Red Blood Cells % 0.1; Platelet Count 210 10^3/uL (150-450); Red Blood Count 3.68 10^6 /uL (3.70-4.87); Red Cell Distribution Width 14 % (10-15); White Blood Count 5.4 10^3/uL (3.5-10.8)
[2020-08-06 17:03] LABS: Albumin 3.9 g/dL (3.2-5.2); Albumin/Globulin Ratio 1.3 (1-3); BUN/Creatinine Ratio 15.5 (8-20); EGFR African American 79.6 (>60); EGFR Non-African American 65.7 (>60); Globulin 2.9 g/dL (2-4); HDL Cholesterol 36.9 mg/dL; Total Bilirubin 0.7 mg/dL (0.2-1.0); Total Protein 6.8 g/dL (6.4-8.9)
[2020-08-06 17:05] LABS: Potassium 3.7 mmol/L (3.5-5.0)
[2020-08-06] MEDS ORDERED: Iohexol 350 (CONTRAST) 500 ML MDV IV ONE (17:30)
[2020-08-07 08:45] LABS: Urine Appearance Clear; Urine Bacteria Absent (Absent); Urine Bilirubin Negative (Negative); Urine Blood 2+ (Negative); Urine Color Straw; Urine Glucose Negative (Negative); Urine Ketones Negative (Negative); Urine Nitrite Negative (Negative); Urine Protein Negative (Negative); Urine Red Blood Cell 2+(6-10/hpf) (Absent); Urine Squamous Epithelial Cell Present (Absent); Urine Urobilinogen Negative (Negative); Urine White Blood Cell 3+(>20/hpf) (Absent)
[2020-08-08 07:04] LABS: ABS Eosinophils 0.1 10^3/ul (0-0.6); ABS Lymphocytes 1.7 10^3/ul (1.0-4.8); ABS Monocytes 0.4 10^3/ul (0-0.8); Eosinophil % 2.9 %; Hematocrit 33 % (35-47); Hemoglobin 11.3 g/dL (12.0-16.0); Lymphocyte % 39.6 %; Mean Corpuscular HGB Conc 35 g/dL (31-36); Mean Corpuscular Hemoglobin 30 pg (27-31); Mean Corpuscular Volume 86 fL (80-97); Mean Platelet Volume 8.5 fL (7.4-10.4); Nucleated Red Blood Cells % 0.1; Platelet Count 179 10^3/uL (150-450); Red Blood Count 3.79 10^6 /uL (3.70-4.87); Red Cell Distribution Width 14 % (10-15); White Blood Count 4.2 10^3/uL (3.5-10.8)
[2020-08-08 07:36] LABS: BUN/Creatinine Ratio 13.6 (8-20); Calcium 9.6 mg/dL (8.6-10.3); EGFR Non-African American 68.6 (>60); Potassium 3.7 mmol/L (3.5-5.0)
[2020-08-08 09:28] LABS: Vitamin D Total 25(OH) 27.4 ng/mL (20-50)
[2020-08-09] MEDS ORDERED: Cholecalciferol (VIT D3) 1,000 unit TAB PO SCH (09:00)
[2020-08-09 12:20] VITALS: BP 103/63
== END 2020-08-09 13:45 | DRG 880 ==
LOC: MEDTELE 15:23 → ED 15:23 → SUATTDRO 17:02 → MEDTELE 18:02
PROVIDERS: ADMIT Student in an Organized Health Care Education/Training Program; ATTEND Pediatrics

== ENCOUNTER 2020-09-27 12:01 | Inpatient (IN) ==
[2020-09-27] MEDS ORDERED: LORazepam 2 mg VIAL 1 ml IV PUSH ONE (12:11)
[2020-09-27] MEDS ORDERED: Lorazepam PYXIS KEY PRN (12:11)
[2020-09-27 12:49] LABS: ABS Lymphocytes 0.9 10^3/ul (1.0-4.8); ABS Monocytes 0.4 10^3/ul (0-0.8); Eosinophil % 0.2 %; Hematocrit 32 % (35-47); Lymphocyte % 21.8 %; Mean Corpuscular HGB Conc 34 g/dL (31-36); Mean Corpuscular Hemoglobin 30 pg (27-31); Mean Corpuscular Volume 87 fL (80-97); Mean Platelet Volume 8.2 fL (7.4-10.4); Platelet Count 239 10^3/uL (150-450); Red Blood Count 3.68 10^6 /uL (3.70-4.87); Red Cell Distribution Width 14 % (10-15); White Blood Count 4.3 10^3/uL (3.5-10.8)
[2020-09-27 13:05] LABS: Albumin 4.2 g/dL (3.2-5.2); Albumin/Globulin Ratio 1.4 (1-3); Calcium 9.5 mg/dL (8.6-10.3); EGFR African American 73.5 (>60); EGFR Non-African American 60.7 (>60); Globulin 2.9 g/dL (2-4); Potassium 3.4 mmol/L (3.5-5.0); Total Bilirubin 0.8 mg/dL (0.2-1.0); Total Protein 7.1 g/dL (6.4-8.9)
[2020-09-27] MEDS: Potassium Chlor 20 meq TAB.ER PO ONE ×2 (17:50→17:51)
[2020-09-27 18:38] LABS: TSH Ultra Thyroid Stim Horm 0.27 mcIU/mL (0.34-5.60)
[2020-09-27] MEDS ORDERED: CITALOPRAM 10 MG PO SCH ×2 (21:00→23:30)
[2020-09-27] MEDS: Enoxaparin 40 MG/0.4 ML SYR SUBCUT SCH (21:49)
[2020-09-27] MEDS: CITALOPRAM 40 MG PO SCH (23:48)
[2020-09-28 07:06] LABS: Albumin 3.7 g/dL (3.2-5.2); Calcium 9.2 mg/dL (8.6-10.3); Potassium 3.7 mmol/L (3.5-5.0)
[2020-09-28 07:12] LABS: ABS Lymphocytes 1.4 10^3/ul (1.0-4.8); ABS Monocytes 0.4 10^3/ul (0-0.8); ABS Neutrophils 2.1 10^3/ul (1.5-7.7); Albumin/Globulin Ratio 1.4 (1-3); EGFR African American 81.8 (>60); EGFR Non-African American 67.6 (>60); Eosinophil % 1.1 %; Globulin 2.6 g/dL (2-4); Hematocrit 34 % (35-47); Hemoglobin 11.7 g/dL (12.0-16.0); Lymphocyte % 35.9 %; Mean Corpuscular HGB Conc 34 g/dL (31-36); Mean Corpuscular Hemoglobin 30 pg (27-31); Mean Corpuscular Volume 87 fL (80-97); Mean Platelet Volume 8.5 fL (7.4-10.4); Nucleated Red Blood Cells % 0.2; Platelet Count 176 10^3/uL (150-450); Red Blood Count 3.93 10^6 /uL (3.70-4.87); Red Cell Distribution Width 13 % (10-15); Total Protein 6.3 g/dL (6.4-8.9)
[2020-09-28] MEDS: Cholecalciferol (VIT D3) 1,000 unit TAB PO SCH (08:43)
[2020-09-28 10:56] LABS: Free T4 1.41 ng/dL (0.61-1.12)
[2020-09-28] MEDS: Enoxaparin 40 MG/0.4 ML SYR SUBCUT SCH (21:15)
[2020-09-28] MEDS: CITALOPRAM 10 MG PO SCH (21:17)
[2020-09-28] MEDS: CITALOPRAM 40 MG PO SCH (21:17)
[2020-09-29] MEDS: Cholecalciferol (VIT D3) 1,000 unit TAB PO SCH (08:31)
[2020-09-29] MEDS: CITALOPRAM 10 MG PO SCH (20:40)
[2020-09-29] MEDS: CITALOPRAM 40 MG PO SCH (20:40)
[2020-09-29] MEDS: Enoxaparin 40 MG/0.4 ML SYR SUBCUT SCH (20:42)
[2020-09-30] MEDS: Cholecalciferol (VIT D3) 1,000 unit TAB PO SCH (08:57)
[2020-09-30] MEDS: Enoxaparin 40 MG/0.4 ML SYR SUBCUT SCH (21:32)
[2020-09-30] MEDS: CITALOPRAM 10 MG PO SCH (21:36)
[2020-09-30] MEDS: CITALOPRAM 40 MG PO SCH (21:36)
[2020-10-01] MEDS: Cholecalciferol (VIT D3) 1,000 unit TAB PO SCH (08:23)
[2020-10-01 14:07] VITALS: BP 96/63
== END 2020-10-01 14:35 | disposition home health service (06) | DRG 880 ==
LOC: MED 12:01 → ED 12:01 → MED 18:09
PROVIDERS: ADMIT Hospitalist; ATTEND Hospitalist

== ENCOUNTER 2022-06-20 02:06 | Observation (INO) ==
[2022-06-20] MEDS ORDERED: Lorazepam PYXIS KEY PRN (02:16)
[2022-06-20 02:29] LABS: ABS Eosinophils 0.1 10^3/ul (0-0.6); ABS Lymphocytes 2.7 10^3/ul (1.0-4.8); ABS Monocytes 0.6 10^3/ul (0-0.8); ABS Neutrophils 2.6 10^3/ul (1.5-7.7); Eosinophil % 1.7 %; Hematocrit 33 % (35-47); Hemoglobin 10.8 g/dL (12.0-16.0); Lymphocyte % 44.5 %; Mean Corpuscular HGB Conc 33 g/dL (31-36); Mean Corpuscular Hemoglobin 28 pg (27-31); Mean Corpuscular Volume 86 fL (80-97); Mean Platelet Volume 8.8 fL (7.4-10.4); Nucleated Red Blood Cells % 0.1; Platelet Count 183 10^3/uL (150-450); Red Blood Count 3.87 10^6 /uL (3.70-4.87); Red Cell Distribution Width 14 % (10-15)
[2022-06-20 02:48] LABS: High Sens Troponin Baseline 6 pg/mL (<15)
[2022-06-20 02:52] LABS: ALT 14 U/L (7-52); AST 19 U/L (13-39); Albumin 4.2 g/dL (3.2-5.2); Albumin/Globulin Ratio 1.6 (1-3); Alcohol, S < 13 mg/dL (<13); Alkaline Phosphatase 67 U/L (35-149); Anion Gap 5 mmol/L (2-11); Blood Urea Nitrogen 22 mg/dL (6-24); CO2 Carbon Dioxide 26 mmol/L (22-32); Calcium 9.2 mg/dL (8.6-10.3); Chloride 101 mmol/L (101-111); Creatinine, Serum 0.93 mg/dL (0.51-0.95); Globulin 2.7 g/dL (2-4); Glucose 96 mg/dL (70-100); Potassium 4.1 mmol/L (3.5-5.0); Sodium 132 mmol/L (135-145); Total Protein 6.9 g/dL (6.4-8.9); eGFR CKD-EPI 62.5 (>60)
[2022-06-20] MEDS: LORazepam 2 mg VIAL 1 ml IV PUSH ONE ×2 (03:20→04:08)
[2022-06-20 04:15] LABS: High Sensitivity Troponin 1 Hr 6 pg/mL (<15)
[2022-06-20 04:47] LABS: Urine Appearance Clear; Urine Bilirubin Negative (Negative); Urine Blood 2+ (Negative); Urine Color Straw; Urine Glucose Negative (Negative); Urine Ketones Negative (Negative); Urine Nitrite Negative (Negative); Urine Protein Negative (Negative); Urine Specific Gravity 1.004 (1.002-1.030); Urine Urobilinogen Negative (Negative)
[2022-06-20 04:57] LABS: Urine Bacteria Absent (Absent); Urine Red Blood Cell Trace(0-2/hpf) (Absent); Urine White Blood Cell Absent (Absent)
[2022-06-20 05:12] LABS: Urine Benzodiazepine Screen None Detected (None Detect); Urine Cannabinoids Screen None Detected (None Detect); Urine Opiates Screen None Detected (None Detect)
[2022-06-20] MEDS ORDERED: Polyethylene Glycol 3350 17 GM PACKET PO PRN (06:26)
[2022-06-20] MEDS ORDERED: Cholecalciferol (VIT D3) 1,000 unit TAB PO SCH (09:00)
[2022-06-20 11:14] VITALS: BP 129/82
[2022-06-20] MEDS ORDERED: Enoxaparin 40 MG/0.4 ML SYR SUBCUT SCH (21:00)
== END 2022-06-20 14:00 | disposition home or self-care (01) ==
LOC: ED 02:06 → EDHOLD 02:06 → SUATTDRO 05:37 → EDHOLD 11:13
PROVIDERS: ADMIT Internal Medicine; ATTEND Internal Medicine Hematology & Oncology